=== PATIENT | male | born 1995 | race Caucasian/White ===

== ENCOUNTER 2016-04-19 05:09 | Emergency (ER) | payer OTHER ==
[~2016-04-19] VITALS: Ht 175.3 cm; Wt 95.3 kg
[~2016-04-19 05:09] MED LIST: IBUPROFEN800 M1 PO; MOTRIN 600 MG600 MG PO
[2016-04-19 05:22] VITALS: BP 147/83
--- NOTE | 2016-04-19 05:24 | ED INFLUENZA/URI COMPLAINT ---
History of Present Illness General Chief Complaint: General Adult Stated Complaint: "PER PT SINUS INFECTION" Source: patient Exam Limitations: no limitations Vital Signs & Intake/Output Vital Signs & Intake/Output Vital Signs Date Time Temp Pulse Resp B/P Pulse O2 O2 Flow FiO2 Ox Delivery Rate 04/19 0522 98.5 92 16 147/83 98 Room Air Room Air Allergies Coded Allergies: MDX - Codeine (CODEINE) (BODY RASH 07/11/15) Reconcile Medications Albuterol Sulfate (Proair Hfa) 90 MCG HFA.AER.AD 2 PUF INH Q4-6 PRN PRN DYSPNEA Guaifenesin/Dextromethorphan (Delsym Cough+Chest Cngst Dm Lq) 100 MG-5 MG/5 ML LIQUID 20 ML PO Q4 PRN COUGH Ibuprofen (Motrin 600 MG Tab) 600 MG TABLET 1 TAB PO Q6-PRN PRN PAIN/ INFLAMMATION with food Ibuprofen 800 MG TABLET 1 TAB PO TID PRN PAIN Triage Note: 21YO MALE TO TRIAGE W/CO HEAD AND SINUS PRESSURE STATES HE WAS DXED SINUS INF ON WED AND TAKING AMOX,CLARITIN W/OUT RELIEF. Triage Nurses Notes Reviewed? yes Onset: Abrupt Duration: day(s): (4) Timing: recent history Severity: moderate No Modifying Factors: none Associated Symptoms: nasal congestion, FACIAL PAIN, COUGH, CONGESTION HPI: This is a 21-year-old male with history of previous history of asthma, diagnosed with sinusitis on Augmentin day 2 presents to ER with chief complaint of persistent congestion, rattling in his chest and cough which is keeping him up at night. Denies any fever or chills. Past History Travel History Traveled to [place] past 21 day No Medical History Any Pertinent Medical History? see below for history Neurological: NONE EENT: NONE Cardiovascular: NONE Respiratory: asthma Gastrointestinal: NONE Hepatic: NONE Renal: NONE Musculoskeletal: NONE Psychiatric: NONE Endocrine: NONE Blood Disorders: NONE Cancer(s): NONE PROJECT MANAGEMENT IT SPECIALIST/Reproductive: NONE Tetanus Vaccine: 06/10/14 Surgical History Surgical History: appendectomy Psychosocial History What is your primary language Nepalese Tobacco Use: Never used Family History Hx Contributory? No Review of Systems Review of Systems Constitutional: Reports: fever. Denies: chills. EENTM: Reports: ear pain. Respiratory: Reports: hemoptysis, short of breath. Denies: sputum production. Cardiovascular: Denies: chest pain, palpitations. GI: Denies: abdominal pain. Genitourinary: Reports: no symptoms. Musculoskeletal: Reports: no symptoms. Skin: Reports: no symptoms. Neurological/Psychological: Reports: no symptoms. Hematologic/Endocrine: Denies: bruising, bleeding, polyuria, polydipsia. Immunologic/Allergic: Denies: splenectomy. All Other Systems: Reviewed and Negative Physical Exam Physical Exam General Appearance: well developed/nourished, no apparent distress, alert, awake , mild distress Head: atraumatic, normal appearance Eyes: Bilateral: normal appearance, PERRL, EOMI. Ears, Nose, Throat: normal ENT inspection, moist mucous membrane, hearing grossly normal, Tympanic normal, pharynx normal Neck: normal inspection, supple, full range of motion Respiratory: normal breath sounds, chest non-tender, no respiratory distress Cardiovascular: regular rate/rhythm Peripheral Pulses: 2+ radial (R), 2+ radial (L) Gastrointestinal: soft, non-tender Extremities: normal inspection, no edema Neurologic/Psych: no motor/sensory deficits, awake, alert, oriented x 3, normal gait Skin: intact, normal color, warm/dry Core Measures Severe Sepsis Present: No Septic Shock Present: No Progress Differential Diagnosis: pneumonia, sinusitis, BRONCHITIS Plan of Care: RX SENT TO PHARMACY. PATIENT WILL CONTINUE AUGMENTIN. Initial ED EKG: none Departure Departure Disposition: HOME OR SELF CARE Condition: Stable Clinical Impression Primary Impression: Sinusitis Referrals: JASON MATUTE FAAPEMORY (PCP/Family) Additional Instructions: Continue the augmentin as directed. Use the inhaler, cough medication and sudafed as directed. Follow up with your doctor in the office. Return as needed. Departure Forms: Customer Survey General Discharge Information Prescriptions: Current Visit Scripts Albuterol Sulfate (Proair Hfa) 2 PUF INH Q4-6 PRN PRN DYSPNEA #1 INHAL Guaifenesin/Dextromethorphan (Delsym Cough+Chest Cngst Dm Lq) 20 ML PO Q4 PRN COUGH #600 ML
[2016-04-19] MEDS ORDERED: PROAIR HFA8.5 GM INH (05:32)
[2016-04-19] MEDS ORDERED: DELSYM COUGH+C180 ML PO (05:32)
== END 2016-04-19 05:47 ==
LOC: ERH 05:09
DX: J32.9 Chronic sinusitis, unspecified (principal)